=== PATIENT | female | born 1960 | race Caucasian/White ===

== ENCOUNTER 2018-12-13 07:57 | Day surgery (SDC) | payer BC ==
[2018-12-06 09:58] LABS: Absolute Lymphocytes (CBC) 2.1 K/uL (0.7-4.9); Absolute Monocytes 0.6 K/uL (0.1-1.3); Absolute Neutrophil 7.2 K/uL (1.8-8.0); Basophils % 0.8 % (0-1.3); Eosinophils % 2.5 % (0-4.4); Lymphocytes % 20.3 % (15.3-44.8); MPV 9.2 fL (7.6-11.3); Monocytes % 6.2 % (3.3-12.3); RBC Red Blood Cell Count 4.65 M/uL (3.86-4.86)
--- NOTE | 2018-12-06 10:32 | RAD REPORT ---
EXAM DESCRIPTION: RAD - Chest Pa And Lat (2 Views) - 12/06/2018 10:15 am CLINICAL HISTORY: preop Chest pain. COMPARISON: No comparisons FINDINGS: The lungs are clear. The heart is mildly enlarged in size. No displaced fractures. Cholecy stectomy clips. IMPRESSION: No acute or concerning finding suspected.
[2018-12-13] MEDS ORDERED: NA CHLORIDE 0.9% 1,000 ML ONE (08:16)
[2018-12-13] MEDS ORDERED: CEFAZOLIN/SWI 1gm 1 GM/10 ML SYR ONE (08:16)
[2018-12-13 08:18] LABS: Specific Gravity 1.025 (1.005-1.030)
[2018-12-13] MEDS ORDERED: FENTANYL CITR 100 MCG/2 ML ONE (08:18)
[2018-12-13] MEDS ORDERED: ROCURONIUM 50 MG/5 ML VIAL IV ONE (08:18)
[2018-12-13] MEDS ORDERED: DEXAMETHASONE 10 MG/ML VIAL ONE (08:18)
[2018-12-13] MEDS ORDERED: MIDAZOLAM HCL 2 MG/2 ML INJ ONE (08:18)
[2018-12-13] MEDS ORDERED: PROPOFOL 200 MG/20 ML VIAL IV ONE (08:18)
[2018-12-13] MEDS ORDERED: LIDOCAINE 2% MPF 5 ML VIAL ONE (08:18)
[2018-12-13] MEDS ORDERED: GLYCOPYRROLATE 0.2 MG/ML SYR ONE (09:32)
[2018-12-13] MEDS ORDERED: KETOROLAC 30 MG/ML INJ ONE (09:38)
[2018-12-13] MEDS ORDERED: HYDROMORPHONE HCL 1 MG/ML INJ ONE (10:09)
[2018-12-13] MEDS ORDERED: ONDANSETRON 4 MG/2 ML VIAL ONE (10:40)
[2018-12-13] MEDS ORDERED: TRAMADOL 37.5mg/APAP 325mg PER TAB ONE (11:12)
--- NOTE | 2018-12-13 13:59 | OP ---
Date of Procedure: 12/13/2018 Surgeon: William Roque MD Civil Laboratory Technician: BONIFACIO Pena. Preoperative Diagnosis: Recurrent umbilical hernia. Postoperative Diagnoses: Recurrent umbilical hernia with incarcerated umbilical hernia x2 and omenta l nodule. Procedures Performed: Laparoscopic repair of incarcerated recurrent umbilical hernia x2 and excision of omental nodule. Estimated Blood Loss: Minimal. Specimen: Hernia sac and omental nodule. Findings: Above. Anesthesia: General. Complications: None. Disposition: The patient tolerated the procedure in stable condition, taken to Recovery in good gene ral condition. Procedure In Detail: The patient was brought to the OR and placed in supine position. General anest hesia was begun. The patient was prepped and draped in usual sterile fashion. Marcaine 0.5% was inf iltrated locally. A 15-blade was used to make a 1 cm left upper quadrant incision. Subcutaneous tis benita divided. The fascia was identified and divided. A #1 Vicryl stay suture was placed. Peritoneal cavity was entered with sharp and blunt dissection. A 12 mm trocar placed into the peritoneal cavit y under direct vision. Pneumoperitoneum was established. Then, a 5 mm trocar placed in the left low er quadrant. Laparoscopy revealed 2 umbilical hernias, 1 right at the umbilicus, 1 inferior and slig htly lateral to the left side, and they were approximately 2-3 cm each in size, and there was incarce rated omentum and 1 of the omentum had nodules in it, so the omentum was reduced with sharp and blunt dissection. There were adhesions inside the sac. Then a 15-blade was used to make a midline incisi on approximately 6 cm in length. Subcutaneous tissue divided and hernia sac identified and excised. Omental nodule identified through the hernia opening and excised between clamps tied with 2-0 silk t ies and sent to Pathology. Then the 2 hernias connected together to leave approximately a 6 cm defec t, and then the primary closure of the fascia was done with #1 PDS. Then pneumoperitoneum was re-est ablished and then a Bard mesh system, balloon system was used 15 x 10 cm oval in shape in the standar d fashion to cover the entire hernia defect with at least 3 cm borders on all sides. Then AbsorbaTac k used to tack the mesh to the peritoneal surface. Complete coverage of the hernia defect accomplish ed and then the balloon component removed intact. Abdominal cavity examined. No evidence of bleedin g or bowel injury appreciated. Subsequently, all trocars were removed under direct vision. Stay sut ures were tied to each other, to reapproximate the fascial defect. Subcutaneous wounds were irrigate d. Bleeding controlled with cautery. A 3-0 chromic used to approximate the subcutaneous tissue, and aurelio were used to close the skin. Sterile dressing was applied. The patient was awakened and ta balta to Recovery in good general condition. /MODL Voice ID: [id number] Report ID: [id number]
--- NOTE | 2018-12-13 13:59 | DS ---
Date of Discharge: 12/13/2018 The patient will go to Day Surgery and home when stable. Disposition: Home. Condition: Stable. Discharge Instructions: Resume home medications and diet. Activity as tolerated. No heavy lifting. Remove outer dressing in 2 days. Shower. Keep wound clean and dry. Follow up in my office in 10 days. Call for appointment. Ultracet 1 tablet p.o. q.4 p.r.n. pain. Abdominal binder as ordered. Incentive spirometer as ordered. CHINMAY/GENEVA Voice ID: [id number] Report ID: [id number]
== END 2018-12-13 11:25 | disposition home or self-care (01) ==
LOC: OR 07:57
PROVIDERS: ATTEND Surgery
PROC: 0DBU0ZZ Excision of Omentum, Open Approach (ICD-10-PCS; 2018-12-13)
PROC: 0WUF4JZ Supplement Abdominal Wall with Synthetic Substitute, Percutaneous Endoscopic Approach (ICD-10-PCS; principal; 2018-12-13 09:00)
DX: K42.0 Umbilical hernia with obstruction, without gangrene (principal); K66.8 Other specified disorders of peritoneum; E11.9 Type 2 diabetes mellitus without complications; I10 Essential (primary) hypertension; K21.9 Gastro-esophageal reflux disease without esophagitis; Z88.6 Allergy status to analgesic agent
CPT/HCPCS: 36415; 71046; 80048; 81025; 82962; 85025; 88302; 88305; J0690; J1100; J1170; J2250; J2405; J2704; J3010; J7030

== ENCOUNTER 2021-03-01 09:33 | Day surgery (SDC) | payer BC ==
[2021-03-01] MEDS ORDERED: NA CHLORIDE 0.9% 1,000 ML ONE (10:07)
[2021-03-01] MEDS ORDERED: FENTANYL CITR 100 MCG/2 ML ONE (11:46)
[2021-03-01] MEDS ORDERED: MIDAZOLAM HCL 2 MG/2 ML INJ ONE (11:46)
[2021-03-01] MEDS ORDERED: propofoL 200 MG/20 ML VIAL IV ONE (11:46)
[2021-03-01] MEDS ORDERED: LIDOCAINE 1% W/EPI 1:100,000 MDV 20 ML VIAL ONE (11:51)
[2021-03-01] MEDS ORDERED: ONDANSETRON 4 MG/2 ML VIAL ONE (11:55)
[2021-03-01 14:44] VITALS: BP 126/65; TEMP 97.6; O2SAT 98
--- NOTE | 2021-03-01 22:50 | OP ---
Date of Procedure: 03/01/2021 Surgeon: Paola Greene MD Assistant Technician: No transport assistant. Preoperative Diagnoses: Postmenopausal bleeding, endometrial polyps, pelvic pain. Procedures Performed: Operative hysteroscopy, polypectomy x4 and dilation and curettage. Anesthesia: General with LMA. Specimens: Endometrial polyps and curettings. Complications: No complications. Drains: No drains. Condition: Stable. Findings: Uterine cavity anteflexed. Cervix dilated to 20-Romanian. MyoSure LITE was inserted and th e entire number of polyps were excised and adequate endometrial sampling was performed. EBL Minimal. No complications. The patient's condition stable. The patient is a 60-year-old with postmenopausal bleeding and pelvic pain. Endometrial evaluation wi ultrasound showed thickened 1.3 cm stripe. On diagnostic hysteroscopy endometrial polyps were fou nd in the office so she was consented for polypectomy and endometrial sampling and brought to the [facility]. Description Of Procedure: After she was re-consented, taken back to OR, placed in supine fashion on the operating table, general anesthesia was given. Placed in a dorsal lithotomy position. Pelvic ex am was performed. Uterus anteflexed. Cervix high. Vulva, vagina, and perineum were prepped and tosin ped in a sterile fashion. Speculum placed to expose the anterior lip of the cervix and grasped with 2 Allis clamps and the cervix dilated to 20-Romanian from 12. Then a MyoSure Lite scope was taken and under direct hysteroscopy after priming the scope inserted through the cervical canal and traversed u nder direct vision into the uterine cavity, there were 4 polyps noted. Small myoma and endometrial w all appeared to be mostly unremarkable. The polyps were removed after inserting the MyoSure LITE dev ice. They were all cut down and taken down to the base and shaved completely. with suben dometrial leiomyoma was noted. The rest of the endometrium was curetted with the device without amber g too deep. The device was removed. There was excellent hemostasis. All instruments were removed. Instrument and sponge counts were correct at the end of the case. The patient recovered from anesth esia and taken to PACU in stable condition. Specimens sent for permanent pathology. She will have a 1-week followup appointment and her friend was explained her findings. RICHMOND/GENEVA Voice ID: [id number] Report ID: [id number]
== END 2021-03-01 13:55 | disposition home or self-care (01) ==
LOC: OR 09:33
PROVIDERS: ATTEND Obstetrics & Gynecology
PROC: 0UDB7ZX Extraction of Endometrium, Via Natural or Artificial Opening, Diagnostic (ICD-10-PCS; 2021-03-01)
PROC: 0UJD8ZZ Inspection of Uterus and Cervix, Via Natural or Artificial Opening Endoscopic (ICD-10-PCS; 2021-03-01)
PROC: 0UB97ZX Excision of Uterus, Via Natural or Artificial Opening, Diagnostic (ICD-10-PCS; principal; 2021-03-01 10:30)
DX: N95.0 Postmenopausal bleeding (principal); N84.0 Polyp of corpus uteri; R10.2 Pelvic and perineal pain; E11.9 Type 2 diabetes mellitus without complications
CPT/HCPCS: 82947 ×2; 88305; 58558; J2704; J2250; J3010; J7030; J2405

== ENCOUNTER 2021-04-14 09:52 | Day surgery (SDC) | payer BC ==
[2021-04-11 14:29] LABS: Urine Appearance CLEAR (Clear); Urine Bilirubin NEGATIVE (Negative); Urine Blood NEGATIVE (Negative); Urine Color YELLOW (Yellow); Urine Glucose NEGATIVE (Negative); Urine Protein NEGATIVE (Negative); Urine Urobilinogen 0.2 mg/dL (0.2-1.0); Urine pH 5.5 (5.0-7.0)
[2021-04-11 14:36] LABS: Absolute Lymphocytes (CBC) 2.9 K/uL (0.7-4.9); Basophils % 0.3 % (0-1.3); Hematocrit 39.4 % (36.0-45.0); Lymphocytes % 21.4 % (15.3-44.8); MPV 8.6 fL (7.6-11.3); RBC Red Blood Cell Count 4.53 M/uL (3.86-4.86)
[2021-04-11 14:39] LABS: Potassium 3.5 mmol/L (3.5-5.1)
[2021-04-11 14:52] LABS: Urine Microscopic Reflex NO UMIC
[2021-04-14] MEDS ORDERED: dexAMETHasone 10 MG/ML VIAL ONE (10:22)
[2021-04-14] MEDS ORDERED: KETAMINE HCL 500 MG/5 ML VIAL ONE (10:22)
[2021-04-14] MEDS ORDERED: ROCURONIUM 50 MG/5 ML VIAL IV ONE (10:22)
[2021-04-14] MEDS ORDERED: propofoL 200 MG/20 ML VIAL IV ONE (10:22)
[2021-04-14] MEDS ORDERED: LIDOCAINE 2% MPF 5 ML VIAL ONE (10:23)
[2021-04-14] MEDS ORDERED: MIDAZOLAM HCL 2 MG/2 ML INJ ONE (10:23)
[2021-04-14] MEDS ORDERED: FENTANYL CITR 250 MCG/5 ML ONE (10:23)
[2021-04-14] MEDS ORDERED: NS 0.9% VIAL 10 ML ONE (10:23)
[2021-04-14] MEDS ORDERED: ONDANSETRON 4 MG/2 ML VIAL ONE (10:23)
[2021-04-14] MEDS ORDERED: NA CHLORIDE 0.9% 1,000 ML ONE ×3 (10:35→16:17)
[2021-04-14] MEDS ORDERED: SCOPOLAMINE HYDROBROMIDE PATCH TD ONE (10:35)
[2021-04-14] MEDS ORDERED: CEFAZOLIN/SWI 2gm 2 GM/20 ML SYR ONE (10:36)
[2021-04-14] MEDS ORDERED: BUPIVACAINE 0.25% PF 30 ML VIAL ONE (11:29)
[2021-04-14] MEDS ORDERED: CEFAZOLIN/SWI 1gm 1 GM/10 ML SYR ONE (11:29)
[2021-04-14] MEDS: LIDOCAINE 1% W/EPI 1:100,000 MDV 20 ML VIAL ONE ×4 (12:37→14:16)
[2021-04-14] MEDS ORDERED: BUPIVACAINE 0.25% PF 10 ML VIAL ONE (12:51)
[2021-04-14] MEDS ORDERED: KETOROLAC 30 MG/ML INJ ONE (14:17)
[2021-04-14] MEDS ORDERED: EPHEDRINE SULF 50 MG/ML VIAL ONE (14:52)
[2021-04-14] MEDS ORDERED: PROMETHAZINE INJ 25 MG/ML AMP IV PRN (14:54)
[2021-04-14] MEDS ORDERED: IBUPROFEN 200 MG TAB PO PRN (14:54)
[2021-04-14] MEDS ORDERED: MEPERIDINE HCL 25 MG/ML SYR IM PRN (14:54)
[2021-04-14] MEDS ORDERED: HYDROCODONE/APAP 5/325 MG TAB PO PRN (14:54)
[2021-04-14] MEDS ORDERED: VITAMIN D 5,000 UNIT CAP PO SCH (15:00)
--- NOTE | 2021-04-14 15:02 | P.BOP ---
Preoperative diagnosis: endometrial hyperplasia, PMB, DEISY Postoperative diagnosis: doug, extensive adhesions at mesh hernia repair site Primary procedure: TLH BSO washings, lysis of adhesions>50% [id number] Secondary procedure: MUS (TVT-O) cystoscopy [employer] Service Worker: Soo Valdez Estimated blood loss: 50 Specimen: uterus tubes ovaries, washings Findings: ant abd wall 10x15 mesh,completely walled with dense adhesions Anesthesia: General Complications: None Drain(s): Urinary catheter Implants: TVT-O Transferred to: Recovery Room Condition: Good (endometriosis)
[2021-04-14 16:19] VITALS: TEMP 97
[2021-04-14] MEDS ORDERED: HYDROCODONE/APAP 5/325 MG TAB ONE (16:47)
[2021-04-14 17:20] VITALS: BP 125/56; O2SAT 95
[2021-04-14] MEDS ORDERED: carvediloL 3.125 MG TAB PO SCH (21:00)
[2021-04-15] MEDS ORDERED: [UNRECOGNIZED DRUG - OTHER] PO SCH (09:00)
[2021-04-15] MEDS ORDERED: HOME MED 1 EA UNK (Insulin Glargine,Hum.Rec.Anlog [Toujeo Solostar] 300 UNIT/ML Insuln.Pen SQ SCH (09:00)
[2021-04-15] MEDS ORDERED: CHLORTHALIDONE 25 MG TAB PO SCH (09:00)
[2021-04-15] MEDS ORDERED: SIMVASTATIN PO SCH (09:00)
[2021-04-15] MEDS ORDERED: EZETIMIBE PO SCH (09:00)
[2021-04-21] MEDS ORDERED: HOME MED 1 EA UNK (Semaglutide [Ozempic] 0.25 MG/0.2 ML Pen.Injctr) SQ SCH (09:00)
--- NOTE | 2021-04-28 15:41 | OP ---
Date of Procedure: 04/14/2021 Surgeon: Paola Greene MD Solution Design And Analysis Manager: Soo Allen. Preoperative Diagnoses: Endometrial hyperplasia, postmenopausal bleeding, stress urinary incontinenc e. Postoperative Diagnoses: Endometrial hyperplasia, postmenopausal bleeding, stress urinary incontinen ce, extensive adhesions at the mesh on the hernia site (faraz and paraumbilical hernia repair was perf ormed in the past). Primary Procedures: 1.Total laparoscopic hysterectomy, bilateral salpingo-oophorectomy, pelvic washings, lysis of adhesi ons which took more than 50% of the case time about 50 minutes. 2.Mid urethral sling (TVT-O) and cystoscopy. Estimated Blood Loss: 50. Anesthesia: General endotracheal. Specimens: Uterus, tubes, ovaries, and pelvic washings. Findings: Anterior abdominal wall had a 10 x 15 mass, completely wall with dense adhesions. These w ere taken down in a systematic fashion with blunt and sharp dissection and using bipolar cautery with LigaSure. Uterus, ovaries, and tubes appeared to be unremarkable. No other abnormal findings. Complications: No complications. Drains: George catheter. Implant: TVT-O. Disposition: Transferred to the recovery room in stable condition. The patient's condition was good . Procedure In Detail: After informed consent was verified, the patient was taken back to OR, placed i n supine fashion on the operating table. 3 g of Ancef were given. SCDs were placed after she was gi finesse general anesthesia. She was placed in a dorsal lithotomy position. Positioning was checked. Ar ms were tucked by the side. Time-out was done and case started. Abdomen, vulva, vagina, and perineu m were prepped and draped in a sterile fashion. George was placed to drain the bladder and attached t o retrograde filling. Large VCare introduced into the uterus and fixed in place. This area was then draped. A 1 cm left upper quadrant incision was made with a scalpel using the open laparoscopy technique. Th e anterior fascia was picked up and incised. Then, the muscles were split. Posterior wall fascia wa s picked up and incised, and both fascial layers were tagged with 0 Vicryl sutures separately, and pe ritoneum picked up and sharply entered with Metzenbaum scissors. Jen introduced and after adequat e insufflation, site of entry was checked and was unremarkable. There were significant adhesions of the anterior abdominal wall. The operative note from prior hernia repair was reviewed by Dr. Roque. It was with a 10 x 15 mesh. Five left lower quadrant port was placed under direct vision. Then once I had a grasper and the Liga Sure, I started the dissection of the anterior wall. The omental adhesions were extremely dense and these were taken down systematically all from the anterior abdominal wall. This took about 50 minute s of push-spread technique, making windows, making sure there was no bowel adhered here and _ were taken down. Once that was complete, then a 5 port was placed through the umbilical area to us e the 5 camera, then 10 suprapubic port was placed was done in this way. Pelvic washings were performed after visualizing the anatomy of the pelvis including the ureters from the pelvic brim to the ureteric tunnel, the ovaries, and the location in the bladder. No distortion s present or scar. Then, LigaSure was taken to take down the left paraovarian ligament and the ovary was taken down. Paratubal dissection was performed this out. Then, round ligament was t aken down. Anterior broad ligament was connected to raise the bladder flap posteriorly, taken down t o the uterosacral and vessels were skeletonized, taken down to the left side. Cardinal ligaments wer e also taken down. Then going on the opposite side, similar dissection was performed taking down the utero-ovarian and the paraovarian ligament opened, creating a window for the IP, taking this down, d issecting the ovary away, round ligament taken down, anterior broad ligament connected for the bladde r flap and posteriorly taken down to the level of the uterosacral. Vessels were skeletonized, taken down with the help of the LigaSure and the same process was done for the cardinal ligaments. Circumf erential colpotomy with a monopolar hook blade was performed after dissecting the bladder down and re tracted inferiorly. Then, specimen pulled out through the vagina without any problems. Both tubes a nd ovaries were removed. Thorough irrigation and suction were performed. Hemostasis was secured. Then, [id number] closu re simple 0 Vicryl stitch at both angles and 3 [id number] in the center were done. There was e xcellent support and closure. Then, after thorough irrigation and suction performed, no evidence of electrical, mechanical, or thermal injury to the ureters were identified. The case was completed. T he Duy-Delgado needle was used to close the left upper quadrant port as well as 10 suprapubic por ts to prevent any hernia. All the other incisions were closed at the level of the skin with 4-0 Vicr yl subcuticular sutures including the suprapubic site. Attention was directed to the sling. The George was left in place. The mid urethral area was picked up with the help of Allis clamp on each side and injected with dilute vasopressin in the midline. Th en, a 1 cm incision made in the middle for opening the vaginal epithelium and subepithelium and conne ctive tissue. Then, once I got underneath, a tunnel was created towards the ipsilateral shoulder goi ng to the obturator membrane, hugging the inferior pubic ramus at a 45-degree to the horizontal and v ertical planes avoiding the adductor longus tendon. An external marker was made for the exit point o n both sides. Then, similar dissection was performed on the left side as well. Then, wing guide was placed. Ruben was passed hugging the pubic ramus, rotated laterally coming out of the exit point by the standard guidelines. Then, plastic dilator was pulled out. Mesh and sheaths were clamped, phillip lar pass on the opposite side. Then, tensioning was performed with the help of Metzenbaum scissors. The plastic sheaths were pulled out. The mesh was trimmed, flushed with the fascia over the skin. Skin closed with the help of Dermabond and vaginal epithelium closed with the help of a 3-0 Vicryl in a continuous running locked fashion. George was removed and cystoscopy was performed. There was excellent jets of urine from both ureteric orifices and no evidence of any trauma or foreign body in the bladder. The bladder was drained. Fo philippe was replaced. The patient was recovered from anesthesia and taken to PACU in stable condition. RICHMOND/GENEVA Voice ID: [id number] Report ID: [id number]
== END 2021-04-14 18:20 | disposition home or self-care (01) ==
LOC: OR 09:52
PROVIDERS: ATTEND Obstetrics & Gynecology
PROC: 0UT74ZZ Resection of Bilateral Fallopian Tubes, Percutaneous Endoscopic Approach (ICD-10-PCS; 2021-04-14)
PROC: 0TSD0ZZ Reposition Urethra, Open Approach (ICD-10-PCS; 2021-04-14)
PROC: 0DNU4ZZ Release Omentum, Percutaneous Endoscopic Approach (ICD-10-PCS; 2021-04-14)
PROC: 0UT94ZZ Resection of Uterus, Percutaneous Endoscopic Approach (ICD-10-PCS; principal; 2021-04-14 13:15)
PROC: 0UT24ZZ Resection of Bilateral Ovaries, Percutaneous Endoscopic Approach (ICD-10-PCS; 2021-04-14 13:15)
DX: N85.00 Endometrial hyperplasia, unspecified (principal); N95.0 Postmenopausal bleeding; N39.3 Stress incontinence (female) (male); E11.9 Type 2 diabetes mellitus without complications; I10 Essential (primary) hypertension; K66.0 Peritoneal adhesions (postprocedural) (postinfection); D25.9 Leiomyoma of uterus, unspecified; N88.8 Other specified noninflammatory disorders of cervix uteri; Z20.822 Contact with and (suspected) exposure to COVID-19
CPT/HCPCS: 85025; 80048; 36415; 86900; 88108; 86850; 86901; 82947 ×2; 88305; 88307; 81003; 58571; 57288; 49329; U0003; J2704; J2250; J3010; J1100; J0690 ×2; J7030 ×3; J2405